=== PATIENT | female | born 1945 | race Caucasian/White ===

== ENCOUNTER 2021-04-15 18:04 | Emergency (ER) | payer MEDICARE, BC ==
[2021-04-15] MEDS ORDERED: Lidocaine 1% with EPINEPHrine 1:100,000 20 ML MDV INFILT ONE (18:05)
--- NOTE | 2021-04-15 18:36 | EDM.PDOC ---
ED HPI GENERAL MEDICAL PROBLEM - General Chief Complaint: Head Injury Stated Complaint: HEAD LACERATION Time Seen by Provider: 04/15/21 18:29 Source of Information: Reports: Patient History Limitations: Reports: No Limitations - History of Present Illness INITIAL COMMENTS - FREE TEXT/NARRATIVE: Patient tripped on the edge of a rug while wearing flip flops and fell to the ground. She struck her head against the leg of a table or chair. Denies loss of consciousness, headache, neck pain, dizziness, or nausea. Onset @1 hour ago. She takes Aspirin 325mg daily. Last Tetanus vaccine 2019. Duration: Hour(s): (1) Location: Reports: Head - Related Data Allergies Allergy/AdvReac Type Severity Reaction Status Date / Time No Known Allergies Allergy Verified 04/15/21 18:51 Home Meds: Home Meds Acetaminophen 500 mg PO ASDIRECTED 04/15/21 [History] Aspirin [Ecotrin EC] 325 mg PO DAILY 04/15/21 [History] Cholecalciferol (Vitamin D3) [Vitamin D3] 2,000 unit PO ASDIRECTED 04/15/21 [History] Darifenacin [Enablex] 7.5 mg PO DAILY 04/15/21 [History] Gabapentin [Neurontin] 300 mg PO QID 04/15/21 [History] Metaxalone [Skelaxin] 800 mg PO ASDIRECTED 04/15/21 [History] amLODIPine [Norvasc] 5 mg PO DAILY 04/15/21 [History] atorvaSTATin [Lipitor] 80 mg PO BEDTIME 04/15/21 [History] Past Medical History Neurological History: Reports: CVA ED ROS GENERAL - Review of Systems Review Of Systems: Comprehensive ROS is negative, except as noted in HPI. ED EXAM, HEAD INJURY - Physical Exam Exam: See Below Exam Limited By: No Limitations General Appearance: Alert, WD/WN, No Apparent Distress Head: Normocephalic, Scalp Lacerations (1.5 cm left frontal laceration with active bleeding) Nexus Criteria: No: Posterior, Midline Cervical Tenderness Eyes: Bilateral Eye: EOMI, PERRL Ears: Normal External Exam Nose: Normal Inspection Throat/Mouth: Normal Voice, No Airway Compromise Neck: Non-Tender Respiratory: No Respiratory Distress, Lungs Clear, Normal Breath Sounds Cardiovascular: Regular Rate, Rhythm, No Murmur Extremities: Normal Range of Motion - [place] Coma Score Best Eye Response (Joselyn): (4) Open Spontaneously Best Verbal Response (Joselyn): (5) Oriented Best Motor Response ([place]): (6) Obeys Commands Joselyn Total: 15 ED LACERATION/WOUND & JOSSUE PROC - Laceration/Wound Repair Head Lac/wound length in cm: 1.5 Appearance: Subcutaneous, Clean Distal NVT: Neuro & Vascular Intact Anesthetic Type: Local Local Anesthesia - Lidocaine (Xylocaine): 1% with EPI Local Anesthetic Volume: 2cc Skin Prep: Saline Exploration/Debridement/Repair: No Foreign Material Found Closed with: Sutures Suture Size: 4-0 # of Sutures: 3 Suture Type: Prolene Drain Placement: No Sterile Dressing Applied: Nurse Tetanus Status Addressed: Yes Complications: No Course - Vital Signs Last Recorded V/S: Last Vital Signs Temp 36.6 C 04/15/21 18:10 Pulse 90 04/15/21 18:10 Resp 16 04/15/21 18:10 BP 185/100 H 04/15/21 18:10 Pulse Ox 96 04/15/21 18:10 - Orders/Labs/Meds Orders: Active Orders 24 hr Category Date Time Status Cervical Spine wo Cont [CT] Stat Exams 04/15/21 18:05 Taken Head wo Cont [CT] Stat Exams 04/15/21 18:05 Taken - Re-Assessments/Exams Free Text/Narrative Re-Assessment/Exam: 04/15/21 19:03 Patient care transferred to Dr. Go pending CT results. Departure - Departure Time of Disposition: 19:03 Disposition: Still A Patient 30 Clinical Impression: Scalp laceration Qualifiers: Encounter type: initial encounter Qualified Code(s): S01.01XA - Laceration without foreign body of scalp, initial encounter Head trauma Qualifiers: Encounter type: initial encounter Qualified Code(s): S09.90XA - Unspecified injury of head, initial encounter - Discharge Information Forms: ED Department Discharge Sepsis Event Note (ED) - Focused Exam Vital Signs: Vital Signs Temp Pulse Resp BP Pulse Ox 04/15/21 18:10 36.6 C 90 16 185/100 H 96 - My Orders Last 24 Hours: My Active Orders 04/15/21 18:05 Cervical Spine wo Cont [CT] Stat Head wo Cont [CT] Stat - Assessment/Plan Last 24 Hours: My Active Orders 04/15/21 18:05 Cervical Spine wo Cont [CT] Stat Head wo Cont [CT] Stat
--- NOTE | 2021-04-15 19:50 | PCM.SN.2 ---
- Free Text/Narrative Note: CT head and Neck results were communicate to the patient. DC home. No fracture or intracranial bleed
== END 2021-04-15 20:00 | disposition home or self-care (01) ==
LOC: FB.ED 18:04
DX: S01.01XA Laceration without foreign body of scalp, initial encounter (principal); Z79.82 Long term (current) use of aspirin; Z79.899 Other long term (current) drug therapy; W26.8XXA Contact with other sharp object(s), not elsewhere classified, initial encounter; W01.190A Fall on same level from slipping, tripping and stumbling with subsequent striking against furniture, initial encounter
CPT/HCPCS: 12001; 70450; 72125; 99283-25